=== PATIENT | male | born 1965 | race Two or more races ===

== ENCOUNTER 2022-08-13 15:48 | Outpatient (CLI) | payer OTHER | END 2022-08-13 16:07 | disposition home or self-care (01) | LOC: RAD 15:48 | PROVIDERS: ATTEND Orthopaedic Surgery | DX: M25.512 Pain in left shoulder (principal); M25.222 Flail joint, left elbow ==

== ENCOUNTER 2022-08-19 11:55 | Outpatient (CLI) | payer OTHER | END 2022-08-19 11:56 | disposition home or self-care (01) | LOC: SONOGRAMA 11:55 | PROVIDERS: ATTEND Orthopaedic Surgery | DX: M25.512 Pain in left shoulder (principal) ==